=== PATIENT | female | born 1980 | race Caucasian/White ===

== ENCOUNTER → 2019-12-22 16:13 | Outpatient (CLI) | payer BC, SELFPAY ==
--- NOTE | ~2019-12-22 | MM_ITS ---
EXAMINATION: MM screening ramirez BI w taye HISTORY: Screening mammogram TECHNIQUE: Craniocaudal and mediolateral oblique 3-D tomosynthesis images were obtained and synthetic 2-D images were generated. Bilateral rotated lateral CC views. .....CAD analysis was submitted and i nterpreted. COMPARISON: 08/21/2018 bilateral digital screening mammogram BREAST PARENCHYMAL COMPOSITION: The breasts are heterogeneously dense, which may obscure small masses . FINDINGS: There is no evidence of suspicious mass, calcification, or architectural distortion to sugg est malignancy in either breast. There has been no suspicious interval change. IMPRESSION: 1. No mammographic evidence of malignancy. 2. Recommend routine screening mammography in one year. BI-RADS Category 1: Negative Reviewed, dictated and finalized at location A.
== END ==
PROVIDERS: Visit Provider Obstetrics & Gynecology Gynecology
DX: Z12.31 Encounter for screening mammogram for malignant neoplasm of breast (principal)
CPT/HCPCS: 77063; 77067